=== PATIENT | female | born 1950 | race Caucasian/White ===

== ENCOUNTER 2021-01-13 03:13 | Emergency (ER) | payer MEDICARE, OTHER ==
[~2021-01-13] VITALS: Ht 170.2 cm; Wt 83.2 kg
--- NOTE | 2021-01-13 03:20 | NUR ---
ALEXANDREA FROM A [facility] HOME FOR C.O LOW O2 SAT ON 80s ON R/A. PT AWAKE, NON- VERBAL, WAS ASSISTED TO BED 7 ER AND WAS PLACED ON A MONITOR . PT WAS PLACED ON O2 AT 2 LPM VIA NC. O2 SAT INCREASED TO 95% .
[2021-01-13] MEDS ORDERED: IV NS 0.9% 500 ML BAG IV ONE (03:30)
[2021-01-13 04:00] LABS: BASOPHILS # (AUTO) 0.1 /CMM (0.0-0.2); BASOPHILS % (AUTO) 0.3 % (0.0-2.0); EOSINOPHILS % (AUTO) 0.2 % (0.0-6.0); HEMATOCRIT 32 % (33-45); HEMOGLOBIN 9.9 g/dL (11.5-14.8); LYMPHOCYTES # (AUTO) 1.3 /CMM (0.8-4.8); LYMPHOCYTES % (AUTO) 8.2 % (20.0-44.0); MEAN CORPUSCULAR HGB CONC 31 g/dl (31.0-36.0); MEAN CORPUSCULAR VOLUME 78 fL (82-100); MONOCYTES # (AUTO) 0.5 /CMM (0.1-1.30); MONOCYTES % (AUTO) 3.2 % (2.0-12.0); NEUTROPHILS # (AUTO) 14.3 /CMM (1.8-8.9); NEUTROPHILS % (AUTO) 88.1 % (43.0-81.0); PLATELET COUNT (AUTO) 520 /CMM (150-450); RED BLOOD CELL COUNT(AUTO) 4.09 MIL/uL (4.0-5.2); WHITE BLOOD COUNT (AUTO) 16.2 K/uL (4.3-11.0)
--- NOTE | 2021-01-13 04:00 | NUR ---
PT WAS TAKEN TO CT
[2021-01-13 04:03] LABS: BILIRUBIN,URINE NEGATIVE (NEGATIVE); COLOR,URINE YELLOW (YELLOW); LEUKOCYTE ESTERASE ,URINE SMALL (NEGATIVE); NITRITE, URINE NEGATIVE (NEGATIVE); PROTEIN,URINE 100 mg/dl (NEGATIVE); UGLUCOSE 100 MG/DL mg/dL (NEGATIVE); UROBILINOGEN,URINE 0.2 EU/dL (0.2)
[2021-01-13 04:12] LABS: SERUM AMMONIA 9 umol/L (11-32)
[2021-01-13 04:16] LABS: ALANINE AMINOTRANSFERASE 14 U/L (12-78); ALBUMIN 3.4 g/dL (3.4-5.0); ALCOHOL, BLOOD < 3 mg/dL (0-0); ALKALINE PHOSPHATASE 129 U/L (46-116); ASPARTATE AMINOTRANSFERASE 13 U/L (15-37); BILIRUBIN,DIRECT 0.3 mg/dL (0.0-0.2); BILIRUBIN,TOTAL 0.9 mg/dL (0.2-1.0); CALCIUM, SERUM 9.6 mg/dL (8.5-10.1); CARBON DIOXIDE 23 mmol/L (21-32); CHLORIDE 101 mmol/L (98-107); CREATININE 1.3 mg/dL (0.6-1.3); GLUCOSE 282 mg/dL (74-106); POTASSIUM 3.2 mmol/L (3.5-5.1); SODIUM SERUM 139 mmol/L (136-145); TOTAL PROTEIN, SERUM 8.4 g/dL (6.4-8.2); UREA NITROGEN, BLOOD 18 mg/dL (7-18)
[2021-01-13 04:16] LABS: BACTERIA,URINE Moderate /HPF (None Seen); SQUAMOUS EPITHELIAL CELL,UR Few /HPF (None Seen); WBC,URINE 51-80 /HPF (0-3); YEAST,URINE Many /HPF (None Seen)
[2021-01-13 04:23] LABS: THYROID STIMULATING HORMONE 1.408 uIU/mL (0.358-3.74)
[2021-01-13 04:32] LABS: ACETAMINOPHEN < 2 ug/ml (10-30)
[2021-01-13] MEDS ORDERED: CEFTRIAXONE 1GM BAG (ER ONLY) 50 ML IV ONE (05:00)
[2021-01-13] MEDS ORDERED: IV NS 0.9% 1,000 ML BAG IV ONE (05:00)
[2021-01-13] MEDS ORDERED: VANCOMYCIN 1 GM in IV D5W 250 ML IV ONE (05:00)
[2021-01-13] MEDS ORDERED: VANCOMYCIN 1 GM VIAL ONE (05:15)
--- NOTE | 2021-01-13 05:16 | NUR ---
Dr Bedolla paged per Dr Mejia.
[2021-01-13] MEDS ORDERED: LABETALOL 20 MG/4 ML VIAL IV ONE (05:30)
[2021-01-13] MEDS ORDERED: LEVETIRACETAM (500MG) 1,000 MG in IV NS 0.9% 100 ML IV SCH (05:30)
[2021-01-13] MEDS ORDERED: LEVETIRACETAM (500MG) 500 MG/5 ML VIAL IV ONE (05:31)
[2021-01-13] MEDS ORDERED: LABETALOL HCL IV 100MG VIAL ONE (05:31)
--- NOTE | 2021-01-13 05:37 | NUR ---
D/C VANCO TO ADMIN KEPPRA IV LAC 18G
[2021-01-13 05:38] VITALS: BP 178/96
--- NOTE | 2021-01-13 05:42 | NUR ---
Call from [facility]. Bed 4531-1. # for report [phone]
--- NOTE | 2021-01-13 06:07 | NUR ---
report given to Alden at [facility]
--- NOTE | 2021-01-13 06:08 | NUR ---
pt was transferred to [facility] under [facility].
== END 2021-01-13 06:21 | disposition short-term general hospital (02) ==
LOC: ER 03:13
DX: I61.5 Nontraumatic intracerebral hemorrhage, intraventricular (principal); G91.9 Hydrocephalus, unspecified; A41.9 Sepsis, unspecified organism; N39.0 Urinary tract infection, site not specified; R65.21 Severe sepsis with septic shock; G93.41 Metabolic encephalopathy; E87.6 Hypokalemia; I69.351 Hemiplegia and hemiparesis following cerebral infarction affecting right dominant side; R00.0 Tachycardia, unspecified; Z20.822 Contact with and (suspected) exposure to COVID-19; E87.2 Acidosis; D50.9 Iron deficiency anemia, unspecified; E78.5 Hyperlipidemia, unspecified; Z86.718 Personal history of other venous thrombosis and embolism; Z89.611 Acquired absence of right leg above knee; E11.52 Type 2 diabetes mellitus with diabetic peripheral angiopathy with gangrene; E11.22 Type 2 diabetes mellitus with diabetic chronic kidney disease; I13.10 Hypertensive heart and chronic kidney disease without heart failure, with stage 1 through stage 4 chronic kidney disease, or unspecified chronic kidney disease; N18.9 Chronic kidney disease, unspecified; K21.9 Gastro-esophageal reflux disease without esophagitis; R40.2142 Coma scale, eyes open, spontaneous, at arrival to emergency department; R40.2242 Coma scale, best verbal response, confused conversation, at arrival to emergency department; R40.2342 Coma scale, best motor response, flexion withdrawal, at arrival to emergency department
CPT/HCPCS: 36415; 70450; 71045; 80048; 80076; 80299; 80307; 80320; 81001; 82140; 83605; 84443; 84484; 85025; 85730; 87040 ×2; 87081; 87086; 87106; 87426; 93005; 96365; 96368; 96375; 99291; J0696; J1953; J3370; J3490; J7030 ×2; J7040; C9803; G0480